=== PATIENT | female | born 1970 | race Caucasian/White ===

== ENCOUNTER → 2021-09-23 | Outpatient (CLI) | payer OTHER ==
[~2021-09-23] MED LIST: CARI350T14 PO; CYCL10TA19 PO; DILT120C99 PO; HYDR-2765 PO; METH2.5T PO; RIVA10TA PO; TRIA50CA PO; Tylenol #3
--- NOTE | 2021-09-23 11:50 | PDOC1 ---
INITIAL PAIN CONSULT DATE OF SERVICE: DOS: DATE: 09/23/21 TIME: 11:44 CHIEF COMPLAINT: Chief Complaint: Low back and right greater than left lower extremity pain HISTORY OF PRESENT ILLNESS: 51-year-old female presents with history of pain low back bilateral lower extremities right greater than left for about 2 and half months patient reports not specific injury that she is aware but has pain on her feet most of her working days for years on hard floors with significant pain in the low back beginning and radiating down the lower extremities posterior gluteus lateral thigh anterior thigh medial thigh medial lower legs and the feet she the great toes and the top of her foot worse on the right than the left but present bilaterally patient reports is constant stabbing throbbing shooting tingling with numbness and radiating pain in the lower extremities burning cramping and aching worse with walking standing changing positions better with sitting or laying down it wakes her from sleep about 2-6 times a night does affect her bowel bladder control does affect her ability to walk does not use any assistive devices to ambulate. Patient has had chiropractic treatment as recently as 3 days ago in which is ongoing also doing exercises at home patient had physical therapy in the past but in the distant past and does exercises and stretches as well from her chiropractic. 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 Patient have phillip in films of the lumbar spine showing anterolisthesis grade 2 at L4-5 with significant degenerative change and narrowing of the interspace at that level with bilateral foraminal compromise. Patient rates her disability rating 0-10 10 and the worst is a 7-10 with family home responsibilities 5-6 recreation 7-9 with social activity 9-10 with occupation 9-10 with behavior 5-6 with self-care and 4-8 with life support activities specially sleeping. Patient has tried [id number] analgesics as well as Motrin and Tylenol without significant reduction pain also. Patient reports no loss of motor function but significant fatigability of both lower extremities right greater than left and no bowel or bladder incontinence. PAST MEDICAL HISTORY: PMH: Atrial fibrillation, arthritis, dizziness, cigarette smoking PREVIOUS SURGERIES: Past Surgical Hx: Hysterectomy, dental procedures CURRENT MEDICATIONS: Current Meds: Active Scripts Medications Dose Route/Sig Max Daily Dose Days Date Category Carisoprodol 350 Mg Tablet 1 Tab PO TID 09/23/21 Reported Hydrocodone-Apap 7.5-325 (Hydrocodone Bit/Acetaminophen) 1 Tab Tablet 1 Tab PO PRN Q6HRS PRN 09/23/21 Reported [Tylenol #3] 09/23/21 Reported Methotrexate (Methotrexate Sodium) 2.5 Mg Tablet Unknown Dose PO DAILY 09/23/21 Reported Xarelto (Rivaroxaban) 10 Mg Tablet Unknown Dose PO BID 09/23/21 Reported Diltiazem 24HR Cd (Diltiazem Hcl) 120 Mg Cap.er.24h Unknown Dose PO DAILY 09/23/21 Reported Cyclobenzaprine Hcl 10 Mg Tablet 1 Tab PO TID 09/23/21 Reported Dyrenium (Triamterene) 50 Mg Capsule Unknown Dose PO DAILY 09/23/21 Reported ALLERGIES; Allergies: Coded Allergies: Latex, Natural Rubber (Verified Allergy, Intermediate, Unknown, 09/23/21) Penicillins (Verified Allergy, Intermediate, Rash, 09/23/21) FAMILY HISTORY: Family Hx: Heart disease, arthritis, lupus, hypercholesterolemia SOCIAL HISTORY: Social Hx: Patient does not sincere alcohol does smoke less than a pack a day and has for 28 years quit 1 year ago, does not use any illegal illicit or recreational drugs, is with her spouse locally in [facility], 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 REVIEW OF SYSTEMS: ROS: Positive for those items mentioned in history of present illness, all systems are reviewed, otherwise negative ,and are complete full and well-documented on patient's chart. PHYSICAL EXAM: VS: Blood pressure is 121/84 pulse 73 respirations 18 temperature 98.2 F height is 4 feet 10 inches weight is 209 pounds. PE: PHYSICAL EXAMINATION: GENERAL: The patient is awake, alert, oriented, appropriate, very pleasant in demeanor HEENT: Shows normocephalic, atraumatic. Extraocular movements are intact and symmetrical. Oral cavity: Mucous membranes moist and pink. Dentition is intact. NECK: Shows anterior throat supple without palpable lymphadenopathy noted. Swallow reflex symmetrical. CHEST: Shows normal on inspection. Breath sounds are clear bilaterally. HEART: Shows S1, S2 clear. No murmurs auscultated. ABDOMEN: Soft, nontender, nondistended. No palpable organomegaly is noted. No rebound or guarding demonstrated. BACK: Shows spine grossly in the midline. Normal-appearing cervical lordotic curvature. There is slightly increased thoracic kyphosis, some minor flattening of the lumbar lordotic curvature. Lumbar paraspinous muscles show symmetrical on inspection, on palpation shows some moderate tenderness diffusely throughout the upper, middle and lower distribution of the paraspinous muscles bilaterally and also into the lower thoracic paraspinous musculature, firm and tender, but without specific trigger points, without radiation of pain. The patient has good rotational motion of the lumbar spine, both laterally as well as extension and flexion without significant difficulty. No tenderness over the spinous processes, sacrum or sacroiliac regions. EXTREMITIES: Lower extremities show deep tendon reflexes 2+ in the patellar and tendo calcaneus tendons. Motor exam is 4 on a scale of 5 with right dorsiflexion, extension, quadriceps and hamstring flexion and 5/5 on the left. Peripheral pulses are 1 posterior tibial. No peripheral edema is noted bilaterally. Lower extremities are warm and dry to touch, equal in color and appearance. Straight leg raise noted to be positive on the right about 40 degrees, left side is negative. Gaenslen's and Felipe's maneuvers are negative bilaterally as well. The patient is able to stand, stand on her toes without significant difficulty or loss of balance, walks with a slight favoring gait does appear to favor the right lower extremity over the left but not use any assistive devices ambulate such as canes or walkers. SKIN: Shows warm and dry, good turgor. No edema. No sores, rashes or bruising throughout. IMPRESSION: Impression: 51-year-old female with approximate 2 and half month history pain low back bilateral lower extremities and radicular fashion worse on the right than the left following L4-5 dermatomal distribution. Atrial fibrillation with anticoagulation therapy Arthritis Dizziness Cigarette smoking recently quit Plan: Options were discussed with the patient including serve medical management physical therapies interventional techniques. Patient is doing chiropractic treatment and exercises as well and has been taking oral analgesics without significant reduction in pain and would like to pursue interventional techniques. We discussed a lumbar epidural steroid injections description as well as anatomical models to describe the procedure. Patient will wait for preauthorization and we will wait for clearance with her primary physician who prescribes her Xarelto to hold this for 48 hours prior to lumbar epidural steroid injection translaminar approach to the L4-5 level. In the meantime, patient will continue with stretching strength exercises, chiropractic treatment as scheduled and oral analgesics as currently. RAÚL MCNEAL MD September 23, 2021 11:50
== END | disposition home or self-care (01) ==
LOC: PNCL 10:20
PROVIDERS: ATTEND Anesthesiology
DX: M54.50 Low back pain, unspecified (principal); M79.605 Pain in left leg; I48.91 Unspecified atrial fibrillation; M19.90 Unspecified osteoarthritis, unspecified site; Z79.899 Other long term (current) drug therapy; Z90.710 Acquired absence of both cervix and uterus; Z98.890 Other specified postprocedural states
CPT/HCPCS: 99205; G0463